=== PATIENT | female | born 1955 | race Hispanic/Latino ===

== ENCOUNTER 2020-12-02 17:15 | Emergency (ER) | payer SELFPAY ==
[2020-12-02 17:26] VITALS: BP 140/79; PULSE 76; RESP 18; TEMP 36.9; O2SAT 98
--- NOTE | 2020-12-02 17:47 | ED.URI ---
HPI - URI/Sore Throat General Chief Complaint: Upper Respiratory Infection Stated Complaint: runny eyes/sore throat/ear pain Time Seen by Provider: 12/02/20 17:47 Source: patient Mode of arrival: ambulatory Limitations: no limitations History of Present Illness HPI Narrative: Zahida Devries is a 65 yo female with PMH T2DM who [facility] with complaints of ear and sinus pain, sore throat, dry cough, red eyes x1 week. She does not speak Slovak-here as a plant operations coordinator Related Data Allergies Allergy/AdvReac Type Severity Reaction Status Date / Time No Known Allergies Allergy Verified 12/02/20 17:48 Review of Systems Review of Systems: Narrative: CONSTITUTIONAL: Denies fever, chills, sweats. EYES: Denies visual changes, redness, discharge. ENT: Denies rhinorrhea, congestion, has sore throat, has otalgia. Red eyes CARDIOVASCULAR: Denies chest pain, palpitations, edema. RESPIRATORY: Denies dyspnea, wheezing, dry cough GASTROINTESTINAL: Denies abdominal pain, nausea, vomiting, diarrhea. GENITOURINARY: Denies dysuria, hematuria, abnormal discharge SKIN: Denies rash or itching. NEUROLOGIC: Denies numbness, or focal weakness. PSYCHIATRIC: Denies anxiety or depression. [facility] Past Medical History Medical History Type 2 diabetes mellitus Social History Social History (Updated 12/02/20 @ 17:50 by Irma Choudhury CNP) Smoking status: Never smoker Alcohol intake: current Gender identity (if verbalized by the patient): Female Comments At time of signature, I agree with nursing past medical, surgical, social and family history. There is no relevant family history pertinent to the presenting complaint. Exam Narrative: Exam Narrative: GENERAL: This is a well-nourished, well-developed patient, in mild distress. HEAD: normocephalic, atraumatic. EYES: PERRL. Sclera clear/injected bilaterally vision is grossly intact. EARS: External ears normal, auditory canals with fluid behind bilateral TMs. TMs without perforation. Hearing grossly intact. NOSE: External nose normal without nasal discharge, nares without redness, some rhinorrhea. THROAT: Mucous membranes moist, posterior pharynx erythema NECK: Neck supple, non-tender CARDIOVASCULAR: Regular rate and rhythm without murmurs, gallops, or rubs. RESPIRATORY: Clear to auscultation. Breath sounds equal bilaterally. No wheezes, rales, or rhonchi. GASTROINTESTINAL: Abdomen soft, SKIN: warm, intact with no suspicious lesions or rash, good texture and turgor. NEURO: awake, alert, and oriented to person, place and time. There were no obvious focal neurologic abnormalities. Steady gait EXTREMITIES: Normal range of motion. BACK: Nontender without deformity Course Course Emergency Course: [facility] complaining of sinus pain ear pain dry cough injected eyes x1 week Strep test was negative Started on naphcon, zithromax, prednisone, delsym-starting due to length of symptoms and difficulty with patient getting into see any medical care Follow-up with PCP Vital Signs Vital signs: Vital Signs Temperature 98.4 F 12/02/20 17:26 Pulse Rate 76 12/02/20 17:26 Respiratory Rate 18 12/02/20 17:26 Blood Pressure 140/79 12/02/20 17:26 Pulse Oximetry 98 12/02/20 17:26 Temperature 98.4 F 12/02/20 17:26 Pulse Rate 76 12/02/20 17:26 Respiratory Rate 18 12/02/20 17:26 Blood Pressure 140/79 12/02/20 17:26 Pulse Oximetry 98 12/02/20 17:26 MDM - URI/Sore Throat Differential Diagnosis Differential diagnosis: Likely upper respiratory infection, sinusitis, viral infection, bronchitis, pharyngitis and other Lab Data Labs: Strep Screen Presumptive Negative *(Reference Range: Negative)* Critical Care Time Critical Care Time Critical Care Time: No Discharge Plan Discharge Clinical Impression: Bronchitis Patient Dis
== END 2020-12-02 18:13 | disposition home or self-care (01) ==
PROVIDERS: Emergency Provider Nurse Practitioner
DX: J40 Bronchitis, not specified as acute or chronic (principal); E11.9 Type 2 diabetes mellitus without complications
CPT/HCPCS: 87081; 87880; 99203; G0463

== ENCOUNTER 2021-12-17 10:44 | Emergency (ER) | payer MEDICAID, SELFPAY ==
[2021-12-17 10:48] VITALS: BP 170/86; PULSE 136; RESP 18; TEMP 36.2; O2SAT 100
--- NOTE | 2021-12-17 12:05 | PC.NURSE ---
Awaiting ERP evaluation.
--- NOTE | 2021-12-17 12:31 | ED.GENADULT ---
HPI - General Adult General Chief complaint: Eye Problems Stated complaint: poked eye with stick right eye Time Seen by Provider: 12/17/21 12:25 History of Present Illness HPI narrative: 56-year-old female presenting to the emergency department for evaluation of a traumatic injury to her right lateral eye. Patient was poked in the eye with a branch. Patient denies any change in vision of the eye. Patient does report some lateral eye pain. Patient's visual avalos are intact and had no change in her visual acuity. Injury happened just prior to arrival. Patient family acted as colloid mill operator. Official colloid mill operator was declined. Related Data Allergies Allergy/AdvReac Type Severity Reaction Status Date / Time No Known Allergies Allergy Unverified 10/03/17 10:37 Review of Systems Review of Systems: CONSTITUTIONAL: Denies fever, chills, or sweats. EYES: See HPI ENT: Denies rhinorrhea, congestion, sore throat, or otalgia. CARDIOVASCULAR: Denies chest pain, palpitations, or edema. RESPIRATORY: Denies cough or dyspnea. GASTROINTESTINAL: Denies abdominal pain, nausea, vomiting, or diarrhea. GENITOURINARY: Denies dysuria or hematuria. SKIN: Denies rash or itching. MUSCULOSKELETAL: Denies back pain, joint pain, or myalgia. NEUROLOGIC: Denies headache, numbness, or weakness. Exam Narrative: APPEARANCE: Well appearing, no pain, no distress, well-nourished. HEAD: normocephalic, atraumatic. EYES: PERRLA/EOMI, conjunctivae clear. Subconjunctival hemorrhage on lateral right eye. Some fluorescein uptake. No evidence of globe rupture. No flowing fluorescein from abrasion. Normal fundus exam. NOSE: Normal no drainage THROAT: Pharynx clear, no exudate. NECK: Supple. No adenopathy, no masses. RESPIRATORY: Airway patent, respirations nonlabored. Clear to auscultation bilaterally, no rales, rhonchi, wheezing. CARDIOVASCULAR: Regular rate and rhythm without murmurs rubs or gallops. ABDOMINAL: Soft, nontender, nondistended, normal bowel sounds MUSCULOSKELETAL: Moves all extremities. Strength/ROM intact, No edema, No calf tenderness. SKIN: Warm, dry. Normal Color Course Course Emergency Course: Patient was treated with antibiotic. Patient was scheduled for follow-up with ophthalmology. All questions concerns were addressed. Vital Signs Vital signs: Vital Signs Temperature 97.1 F L 12/17/21 10:48 Pulse Rate 136 H 12/17/21 10:48 Respiratory Rate 18 12/17/21 10:48 Blood Pressure 170/86 H 12/17/21 10:48 Pulse Oximetry 100 12/17/21 10:48 Oxygen Delivery Room Air 12/17/21 10:48 Temperature 97.1 F L 12/17/21 10:48 Pulse Rate 77 12/17/21 14:10 Respiratory Rate 16 12/17/21 14:10 Blood Pressure 142/88 H 12/17/21 14:10 Pulse Oximetry 98 12/17/21 14:10 Oxygen Delivery Room Air 12/17/21 10:48 Medical Decision Making Vital Signs Vital Signs: Vital Signs Temperature 97.1 F L 12/17/21 10:48 Pulse Rate 136 H 12/17/21 10:48 Respiratory Rate 18 12/17/21 10:48 Blood Pressure 170/86 H 12/17/21 10:48 Pulse Oximetry 100 12/17/21 10:48 Oxygen Delivery Room Air 12/17/21 10:48 Temperature 97.1 F L 12/17/21 10:48 Pulse Rate 77 12/17/21 14:10 Respiratory Rate 16 12/17/21 14:10 Blood Pressure 142/88 H 12/17/21 14:10 Pulse Oximetry 98 12/17/21 14:10 Oxygen Delivery Room Air 12/17/21 10:48 Discharge Plan Discharge Clinical Impression: Subconjunctival hemorrhage, Abrasion of sclera Patient Disposition: Home, Self-Care Condition: Stable Instructions: Antibiotic Form Additional Instructions: Antibiotic ointment as directed. Have close follow-up with your auth specialist. If you have any worsening symptoms then please call or return to the emergency department. Prescriptions: New erythromycin 5 mg/gram (0.5 %) ointment 1 applic RIGHT EYE BID Qty: 3.5 0RF Follow-up/Referrals: Jacob,TOYA Krishna [Primary Care Provider] -
[2021-12-17] MEDS: FLUORESCEIN SOD 1 MG/STRIP EACH EYE (13:38)
[2021-12-17] MEDS: ERYTHROMYCIN OPHTH OINTMENT 1 GM TUBE 1 APPLIC RIGHT EYE (14:06)
[2021-12-17 14:10] VITALS: BP 142/88; PULSE 77; RESP 16; O2SAT 98
== END 2021-12-17 14:11 | disposition home or self-care (01) ==
PROVIDERS: Emergency Provider Emergency Medicine; PCP Physician Assistant
DX: H11.31 Conjunctival hemorrhage, right eye (principal); S05.8X1A Other injuries of right eye and orbit, initial encounter; W22.8XXA Striking against or struck by other objects, initial encounter
CPT/HCPCS: 99283; A9270

== ENCOUNTER 2022-03-06 09:45 | Outpatient (CLI) | payer MEDICAID, SELFPAY ==
--- NOTE | 2022-03-06 11:36 | ECG_ITS ---
Measurements Intervals [place] Rate: 62 P: 50 ME: 146 QRS: 30 QRSD: 89 T: 61 QT: 411 QTc: 418 Interpretive Statements SINUS RHYTHM VENTRICULAR PREMATURE COMPLEX VOLTAGE CRITERIA FOR LVH BASELINE ARTIFACT- I, II, III, AVR, AVL, AVF BORDERLINE ECG NO PREVIOUS ECG AVAILABLE FOR COMPARISON Electronically Signed On 03-06-2022 12:42:36 CDT by Alejo Guevara D.O.
[2022-03-06 13:08] LABS: Anion Gap 15 mmol/L (8-16); Blood Urea Nitrogen 13 mg/dL (7-17); Calcium 9.6 mg/dL (8.4-10.2); Carbon Dioxide 22 mmol/L (22-30); Chloride 102 mmol/L (98-107); Estimated Glomerular Filt Rate > 60; Glucose 181 mg/dL (65-110); Sodium 139 mmol/L (137-145)
== END 2022-03-06 09:46 | disposition home or self-care (01) ==
LOC: ANHSURGERY 09:53
PROVIDERS: Anesthesiology; PCP Physician Assistant; Visit Provider Orthopaedic Surgery
DX: E11.9 Type 2 diabetes mellitus without complications (principal); Z01.818 Encounter for other preprocedural examination; R94.31 Abnormal electrocardiogram [ECG] [EKG]
CPT/HCPCS: 36415; 80048; 93005

== ENCOUNTER 2022-03-08 01:03 | Day surgery (SDC) | payer MEDICAID, SELFPAY ==
--- NOTE | 2022-03-06 10:04 | PC.NURSE ---
PRE-OP INSTRUCTIONS, PLEASE READ CAREFULLY Report to the Outpatient Waiting Room, entrance under the green pavilion located off [facility], at time _1130_ on date _03/08/22_. OR Time: _1:30 PM_. Time changes happen often and if your time is changed the preop area will call you the afternoon before. - You and your visitor will be asked to self-screen and do not enter if you have any COVID symptoms. - Only one visitor and NO children visitors are allowed at this time. - The patient visitor is requested to leave or wait in car when not with patient due to restrictions. - A mask is required within the hospital. Patients may have clear liquids (water, carbonated beverages, clear teas, apple juice) until 3 hours prior to surgery (1030 AM) with a maximum of 20 ounces. - No food from midnight until time of surgery Take the following medications with a SIP of water the morning of surgery: NONE____ Medications to discontinue per physician __N/A___, Date to take last dose Please no make-up, nail filipino, hairspray, perfume, deodorant, or body powder the day of surgery. No jewelry (including any body piercings) or valuables the day of surgery, leave them at home. Please take a shower or bath the night before, or the morning of, surgery with an antibacterial soap. Wear comfortable, loose fitting clothing. - Jewelry must be removed prior to entering the operating room. Rings and piercings that are not removed may be cut off. - The hospital will not accept responsibility for valuables. - Please leave all valuables, including medications, at home the day of surgery. If you are going home after surgery, a licensed marine engine driver must drive you home. - NO public transportation without another adult. - We recommend that an adult stay with you for 24 hours following discharge. - We also recommend that you do not drive, make important decision, drink alcoholic beverages, or take any drugs that were not prescribed by your health care provider for at least 24 hours after your discharge time. Follow any additional instructions given to you from your surgeon. If you or anyone in your household have experienced Covid symptoms in the past week, please notify your surgeon or the nurse liaison at the phone number below for possible testing. Instructions given to _PT & DAUGHTER (FARA) _and asked if any additional questions and then verbalized understanding. Patient advised to call surgeon office or pre surgery nurse liaison [phone] if any additional questions.
[2022-03-06 10:23] VITALS: BMI 23.9
[2022-03-08] VITALS (9 sets, daily range): BP systolic 134–205; BP diastolic 88–104; PULSE 60–83; RESP 10–20; TEMP 36.6–36.7; O2SAT 98–100
--- NOTE | ~2022-03-08 | XR_ITS ---
EXAMINATION: XR surgery orthopedic DATE: 03/08/2022 15:41 INDICATION: Distal right fibula fracture. TECHNIQUE: 3 intraoperative spot fluoroscopic views of right ankle were obtained. I was not present. Fluoroscopy exposure time was 574 seconds. COMPARISON: None. FINDINGS: There is an oblique fracture of distal fibula status post open reduction internal fixation with retrograde intramedullary goldie and multiple screws. IMPRESSION: 1. Oblique fracture of distal fibula status post open reduction internal fixation. Reviewed, dictated and finalized at location A. IMPRESSION: 1. Oblique fracture of distal fibula status post open reduction internal fixati on.
--- NOTE | 2022-03-08 07:14 | WPDHPUPDATE1 ---
History and Physical Update Update Date/Time: 03/08/22 07:14 History and Physical has been reviewed, including an updated exam of the patient. There are NO changes in the patient's condition. Risks, benefits, and alternatives have been discussed and questions answered. Patient agrees to proceed with procedure.
--- NOTE | 2022-03-08 07:45 | P.PNAN_ITS ---
Anes - Initial Pre Proc Eval Procedure: Operation Date: 03/08/22 13:30 Proposed Procedures p Open Reduction Internal Fixation Right Ankle Fracture - Jaxon London MD Date/Time: 03/08/22 07:45 Surgeon: Jaxon London MD Pre Op Diagnosis: Rt Ankle Fx Patient Data Age: 57 Gender: F Height: 1.63 m Weight: 63.3 kg Allergies Allergy/AdvReac Type Severity Reaction Status Date / Time No Known Allergies Allergy Verified 03/06/22 10:20 Home Medications Medication Instructions Recorded Confirmed Type atorvastatin 10 mg tablet 10 mg DAILY 03/06/22 03/06/22 History glipizide 10 mg tablet 10 mg BID 03/06/22 03/06/22 History Patient hx anesthesia problems: none Family hx anesthesia problems: none Results Review: All pre-operative results and documents have been reviewed as part of the pre- operative evaluation. [facility] Past Medical History Medical History (Updated 03/08/22 @ 07:46 by Homar Castro DO) Closed right ankle fracture Diabetes type 2, controlled Hyperlipidemia Social History Social History Smoking status: Never smoker Second hand tobacco smoke exposure: No Alcohol intake: never Substance use: never Substance use type: does not use Living arrangements: with family Additional living arrangements comments: PT LIVES WITH SURESH MICHELLE [phone] Gender identity (if verbalized by the patient): Female Spiritual care concerns: No Anes - Eval Final PreProcedure Day of Procedure 03/08/22 07:45 Patient weight: normal Heart: regular rate and rhythm Lungs: clear to auscultation Airway: Mallampati scale class II Neurological: alert and oriented Last oral intake: >/= 8 hours ASA classification: III Emergent: no Anesthetic plan: proceed Anesthesia type and monitoring: general LMA and standard monitoring Results Review: All pre-operative results and documents have been reviewed as part of the pre- operative evaluation. Informed Consent: The patient's anesthetic plan and its attendant risks and benefits were discussed with the patient/family/POA. Questions were solicited and answers provided to the satisfaction of the patient/family/POA.
[2022-03-08 12:43] LABS: Glucose Point of Care 179 mg/dl (65-105)
[2022-03-08] MEDS: ACETAMINOPHEN 500 MG TABLET 1000 MG PO (13:30)
[2022-03-08] MEDS: CELECOXIB 200 MG CAPSULE PO (13:30)
[2022-03-08] MEDS: LACTATED RINGERS 1,000 ML 30 ML IV CONT ×2 (13:30→16:00)
[2022-03-08] MEDS: ceFAZolin 2 GM/D5W 50 ML 2 GM/50 ML BAG IVPB (14:30)
[2022-03-08] MEDS: BUPIVACAINE HCL 0.5% PF 30 ML VIAL INFILTRATE (15:02)
--- NOTE | 2022-03-08 16:12 | W.PM.PROC2 ---
Procedure Note - Detailed Date of Procedure 03/08/22 Pre-op Diagnosis RIGHT LATERAL MALLEOLUS FRACTURE Post-op Diagnosis Same Procedure Performed ORIF RIGHT LATERAL MALLEOLUS FRACTURE Surgeon Jaxon London MD Anesthesia General Description of Procedure THE PATIENT WAS TAKEN TO THE OR. THE RIGHT LEG WAS PREPPED AND DRAPED IN THE NORMAL FASHION. AN INCISION WAS MADE AT THE DISTAL FIBULA TIP. A GUIDE PIN WAS INSERTED USING FLUOROSCOPY AND BRIDGING THE FRACTURE FRAGMENTS. A REAMER WAS USED TO REAM THE PROXIMAL AND DISTAL FRACTURE FRAGMENTS. A 3.0 X 130 MM FIBULOCK [place] BY ARTHREX WAS INSERTED AND LOCKED BOTH PROXIMALLY AND DISTALLY WITH 3 SCREWS DISTALLY. C ARM WAS USED THE IMAGE THE ANKLE AND IT WAS FOUND THAT HARDWARE WAS IN GOOD POSITION AND THE SYNDESMOSIS AND FIBULA FRACTURE WAS REDUCED WELL. C ARM WAS USED TO CONFIRM THE POSITION OF ALL SCREWS. NEXT THE WOUNDS WERE WASHED AND 4-0 NYLON WERE USED TO APPROXIMATED THE WOUNDS. WOUNDS WERE WASHED THEN PLACED IN A STERILE DRESSING, THEN A PLASTER SPLINT WAS PLACED.. PATIENT WAS EXTUBATED AND SENT TO RECOVERY ROOM IN STABLE CONDITION. Estimated Blood Loss 10 Complications No immediate complications Condition Stable Disposition PACU
[2022-03-08 16:32] LABS: Glucose Point of Care 157 mg/dl (65-105)
[2022-03-08] MEDS: fentaNYL CITRATE INJ (*CRX) 100 MCG/2 ML VIAL 25 MCG IV PUSH ×2 (16:35→16:37)
[2022-03-08] MEDS: hydrALAZINE HCL 20 MG/ML VIAL 10 MG IV PUSH (16:43)
[2022-03-08] MEDS: oxyCODONE HCL (*CRX) 5 MG TAB IR PO (17:29)
== END 2022-03-08 18:20 | disposition home or self-care (01) ==
PROVIDERS: PCP Physician Assistant; Visit Provider Orthopaedic Surgery
PROC: (CPT 27792; principal; 2022-03-08 13:30)
DX: S82.61XA Displaced fracture of lateral malleolus of right fibula, initial encounter for closed fracture (principal); W19.XXXA Unspecified fall, initial encounter; E11.9 Type 2 diabetes mellitus without complications; E78.5 Hyperlipidemia, unspecified; Z79.84 Long term (current) use of oral hypoglycemic drugs
CPT/HCPCS: 27792; 82948; 99199; A9270; C1713; C1769; J0360; J0690; J2250; J2405; J2704; J3010; J7120

== ENCOUNTER 2022-04-26 14:47 | Emergency (ER) | payer MEDICAID, SELFPAY ==
[2022-04-26 14:58] VITALS: BP 147/69; PULSE 98; RESP 16; TEMP 36.8; O2SAT 99
--- NOTE | 2022-04-26 16:17 | ED.SKABFB ---
HPI - Skin/Abscess/Foreign Bdy General Chief complaint: Skin/Abscess/Foreign Body Stated complaint: cyst Time Seen by Provider: 04/26/22 16:13 Source: patient Mode of arrival: ambulatory Limitations: no limitations History of Present Illness HPI narrative: Patient presents today with a cyst to her left inner thigh that has been present for 7 days and has been worsening since onset. She has not tried any [id number] treatment prior to arrival. States it is very painful. Related Data Home Medications Medication Instructions Recorded Confirmed atorvastatin 10 mg tablet 10 mg DAILY 03/06/22 03/23/22 glipizide 10 mg tablet 10 mg BID 03/06/22 03/23/22 Allergies Allergy/AdvReac Type Severity Reaction Status Date / Time No Known Allergies Allergy Verified 04/26/22 15:00 Review of Systems Review of Systems: CONSTITUTIONAL: Denies body aches, fever, chills, or sweats. EYES: Denies visual changes, redness, or discharge. ENT: Denies rhinorrhea, congestion, sore throat, or otalgia. CARDIOVASCULAR: Denies chest pain, palpitations, or edema. RESPIRATORY: Denies cough or dyspnea. GASTROINTESTINAL: Denies abdominal pain, nausea, vomiting, or diarrhea. GENITOURINARY: Denies dysuria or hematuria. SKIN: + Abscess to left inner thigh MUSCULOSKELETAL: Denies back pain, joint pain, or myalgia. NEUROLOGIC: Denies headache, numbness, tingling, or weakness. PSYCH: Denies depression or anxiety. [facility] Past Medical History Medical History Closed right ankle fracture Diabetes type 2, controlled Hyperlipidemia Social History Social History Smoking status: Never smoker Second hand tobacco smoke exposure: No Alcohol intake: never Substance use: never Substance use type: does not use Additional living arrangements comments: PT LIVES WITH SURESH MICHELLE [phone] Gender identity (if verbalized by the patient): Female Spiritual care concerns: No Comments At time of signature, I have reviewed and agree with nursing past medical, surgical, social and family history unless otherwise noted. Please see nursing chart for further information. There is no relevant family history pertinent to the presenting complaint Exam Narrative: GENERAL: Well-appearing, well-nourished, and in no acute distress. HEAD: Normocephalic, atraumatic. EYES: EOMI. No redness or drainage. Conjunctivae normal. ENT: Mucous membranes pink and moist. NECK: Normal AROM. CHEST: No respiratory distress. EXTREMITIES: Normal range of motion. No edema. SKIN: Warm, dry, no rash. Capillary refill normal. Normal skin turgor. 1.5 cm fluctuant lesion with purulent center to the left inner thigh with surrounding erythema. It is tender to palpation. NEURO: No focal deficits. Alert and oriented x3. Gait steady. PSYCH: Normal affect. No signs of depression or anxiety. Course Course Level of Care: Express Care Visit Vital Signs Vital signs: Vital Signs Temperature 98.3 F 04/26/22 14:58 Pulse Rate 98 04/26/22 14:58 Respiratory Rate 16 04/26/22 14:58 Blood Pressure 147/69 H 04/26/22 14:58 Pulse Oximetry 99 04/26/22 14:58 Oxygen Delivery Room Air 04/26/22 14:58 Temperature 98.3 F 04/26/22 14:58 Pulse Rate 98 04/26/22 14:58 Respiratory Rate 16 04/26/22 14:58 Blood Pressure 147/69 H 04/26/22 14:58 Pulse Oximetry 99 04/26/22 14:58 Oxygen Delivery Room Air 04/26/22 14:58 Reviewed. Pt has been instructed to follow up with her PCP regarding her elevated blood pressure today. Procedures Abscess I/D lower extremity: Date of Incision: 04/26/22 Time of Incision: 16:30 Side (if applicable): left Sedation/analgesia: none Local Anesthetic: lidocaine 1% Amount of anesthesia used (mL): 2 Technique: incised with #11 blade Amount of fluid e
[2022-04-26] MEDS: LIDOCAINE HCL 1% LOCAL INJ 2 ML AMPUL INFILTRATE (17:06)
== END 2022-04-26 16:40 | disposition home or self-care (01) ==
PROVIDERS: Emergency Provider Nurse Practitioner; PCP Physician Assistant
DX: L02.416 Cutaneous abscess of left lower limb (principal); E11.9 Type 2 diabetes mellitus without complications; E78.5 Hyperlipidemia, unspecified
CPT/HCPCS: 10060; 99213; G0463

== ENCOUNTER 2022-11-28 14:15 | Emergency (ER) | payer OTHER, SELFPAY ==
[2022-11-28 14:34] VITALS: BP 134/75; PULSE 80; RESP 16; TEMP 36.9; O2SAT 97
--- NOTE | 2022-11-28 14:42 | ED.GENADULT ---
HPI - General Adult General Chief complaint: Upper Respiratory Infection Stated complaint: Cough, pain on nose & ears Time Seen by Provider: 11/28/22 14:42 Source: patient, RN notes reviewed, old records reviewed and factory expert (Sami) Mode of arrival: ambulatory Limitations: no limitations History of Present Illness HPI narrative: 57-year-old female presents to the [facility] with complaints of cough, runny nose and ear pain for 3 days. Has not taken anything for her symptoms. Denies fevers, chest pain, abdominal pain. Use college service officer, patient speaks no Kyrgyz Onset (ago): day(s) (3) Related Data Home Medications Medication Instructions Recorded Confirmed canagliflozin 300 mg tablet mg 11/28/22 (Invokana) metformin 1,000 mg tablet mg 11/28/22 11/28/22 Allergies Allergy/AdvReac Type Severity Reaction Status Date / Time No Known Allergies Allergy Verified 11/28/22 14:44 Review of Systems Review of Systems: All systems reviewed & are unremarkable except as noted in HPI and below Constitutional: Constitutional: Reports no additional constitutional complaints Eyes: Eyes: Reports no additional eye complaints ENT: Reports as per HPI, Reports otalgia and Reports nasal discharge Cardiovascular: Cardiovascular: Reports no additional cardiovascular complaints, Denies chest pain and Denies dyspnea Respiratory: Respiratory: Reports as per HPI, Denies chest congestion, Reports cough and Denies dyspnea Gastrointestinal: Gastrointestinal: Reports no additional gastrointestinal complaints, Denies abdominal pain, Denies nausea and Denies vomiting Musculoskeletal: Musculoskeletal: Reports no additional musculoskeletal complaints Integumentary/Breasts: Skin/Breast: Reports system reviewed and no additional complaints, except as docu Neurologic: Reports system reviewed and no additional complaints, except as documented Psychiatric: Psychiatric: Reports no additional psychiatric complaints Allergic/Immunologic: Allergic/Immunologic: Reports no additional allergic/immunologic complaints [facility] Past Medical History Medical History Type 2 diabetes mellitus Social History Social History Smoking status: Never smoker Alcohol intake: current Gender identity (if verbalized by the patient): Female Comments At the time of my signature, I reviewed and agree with the nursing past medical, surgical, social, and family history. There is no relevant family history pertinent to the patient complaint. Exam Const: General: cooperative, healthy appearing, comfortable, no acute distress, well developed, alert and well nourished Nutritional Appearance: well nourished Orientation/consciousness: patient oriented x3 Limitations: no limitations HENMT: Head: normal to inspection Ears: hearing grossly normal bilaterally, external ears normal, TM's normal bilaterally and EAC's normal Face/Nose/Sinus: Normal external nose present, Normal nares present, Normal nasal mucous membranes and turbinates present and normal facial exam Face and sinus: normal facial exam Mouth: Yes Normal oral and palatal mucosa present, Yes lip normal and Yes moist mucous membranes Throat: posterior oropharynx normal, uvula midline and postnasal drainage (Large amount) Eyes: General: appearance normal, both eyes and all related structures Alignment and Position: alignment normal Periorbital: periorbital findings normal Pupils: Equal, round and reactive pupils present EOM: EOMs intact bilaterally Neck: Neck: normal visual inspection, full ROM, no lymphadenopathy and no meningeal signs Chest: Chest palpation & inspection: normal inspection of the chest Resp: Effort & Inspection: normal respiratory effort and able to speak in complete sentences Auscultation: clear to auscultation bilaterally, no crackles, no rales, no rhonchi and no whee
== END 2022-11-28 14:58 | disposition home or self-care (01) ==
PROVIDERS: Emergency Provider Nurse Practitioner; PCP Physician Assistant
DX: J06.9 Acute upper respiratory infection, unspecified (principal); E11.9 Type 2 diabetes mellitus without complications
CPT/HCPCS: 99213; G0463

== ENCOUNTER 2025-05-25 18:21 | Emergency (ER) | payer OTHER, SELFPAY ==
--- NOTE | 2025-05-25 18:24 | ED.SKABFB ---
HPI - Skin/Abscess/Foreign Bdy General Chief complaint: Allergic Reaction Stated complaint: Skin Time Seen by Provider: 05/25/25 18:23 Source: patient Mode of arrival: ambulatory Limitations: no limitations History of Present Illness HPI narrative: Zahida is a 60-year-old female patient presenting to the clinic today with complaints of itchy red rash all over her body that just started a few hours ago. Patient denies any new medications, soaps, shampoos, lotions, or detergents. No environmental changes. No new medications. Is concerned that may be she had ingested a spoiled protein shake. Denies any chest pain, shortness of breath, drooling, tongue swelling, or difficulty swallowing. States she is agitated due to the itching. Not taken any medications to treat her symptoms. History of diabetes and hypertension. Related Data Home Medications ?Medication ?Instructions ?Recorded ?Confirmed ?Last Taken ?Type glipizide 10 mg tablet 10 mg BID 03/06/22 05/04/22 Unknown History Held on 05/25/25. Instructions: out of med metformin 1,000 mg tablet mg 11/28/22 11/28/22 Unknown History Held on 05/25/25. Instructions: out of med lisinopril 10 mg tablet mg 05/25/25 Unknown History Allergies Allergy/AdvReac Type Severity Reaction Status Date / Time No Known Allergies Allergy Verified 05/25/25 18:39 Review of Systems Review of Systems: Pertinent positives per HPI. Patient denies any fever, chills, headache, visual changes, dizziness, cough, runny nose, sore throat, shortness of breath, chest pain, palpitations, nausea, vomiting, diarrhea, constipation, abdominal pain, or any urinary issues. [facility] Past Medical History Medical History Diabetes type 2, controlled Hyperlipidemia Closed right ankle fracture Type 2 diabetes mellitus Social History Social History Smoking status: Never smoker Second hand tobacco smoke exposure: No Alcohol intake: never Substance use: never Substance use type: does not use Living arrangements: with family Additional living arrangements comments: PT LIVES WITH SON Apolonia MICHELLE [phone] Occupation/Education: unemployed Gender identity (if verbalized by the patient): Female Spiritual care concerns: No Comments At the time of my signature, I reviewed and agree with the nursing past medical, surgical, social, and family history. There is no relevant family history pertinent to the patient complaint. Exam Narrative: General: Well-developed, well nourished, in no apparent distress Head: Normocephalic, atraumatic. Cardio: Regular rate and rhythm, s1 and s2 normal, no murmur appreciated. Resp: Clear to auscultation bilaterally, no rhonchi, rales, wheezing or rubs. Integumentary: [place], warm, and dry, intact without lesion, red itchy nontender blanchable scattered non papular rash on face, arms, legs, chest, abdomen, groin, and back. Course Course Level of Care: Express Care Visit Vital Signs Vital signs: Vital Signs Temperature 36.6 C 05/25/25 18:31 Pulse Rate 87 05/25/25 18:31 Respiratory Rate 18 05/25/25 18:31 Blood Pressure 154/105 H 05/25/25 18:31 Pulse Oximetry 99 05/25/25 18:31 Oxygen Delivery Room Air 05/25/25 18:31 Temperature 36.6 C 05/25/25 18:31 Pulse Rate 87 05/25/25 18:31 Respiratory Rate 18 05/25/25 18:31 Blood Pressure 154/105 H 05/25/25 18:31 Pulse Oximetry 99 05/25/25 18:31 Oxygen Delivery Room Air 05/25/25 18:31 MDM MDM Narrative Medical decision making narrative: At the time of visit patient is resting comfortably on the exam table. Patient appears to be nontoxic. Complaints of itchy red rash all over her body that just started a few hours ago. Patient denies any new medications, soaps, shampoos, lotions, or detergents. No environmental changes. No new medications. Is concerned that may be she had ingested a spoiled protein shake. Denies any chest pain, shortness of breath, drooling, tongue swelling, or difficulty swallowing. States she is agitated due to the itching. Not taken any medications to treat her symptoms. History of diabetes and hypertension. On exam patient has red itchy nontender blanchable scattered non papular rash on face, arms, legs, chest, abdomen, groin, and back. Decadron 10 mg IM ordered. Medications: Decadron 10 mg IM given in the clinic today. After Decadron injection patient's itching and rash improved. Plan: I suspect patient has allergic dermatitis. Prescription for prednisone 10 day taper dose was sent to the pharmacy-start this tomorrow. Keep a tight control in your blood sugar. Supportive measures were discussed with the patient and they voiced understanding discharge instructions and agrees to treatment plan. Return precautions reviewed Differential Diagnosis Differential Diagnosis: Allergic contact dermatitis, dermatitis, cellulitis, scarlatina, viral exanthem, hives, allergic reaction Discharge Plan Discharge Clinical Impression: Allergic dermatitis Patient Disposition: Home Condition: Stable Instructions: Antibiotic Form, Dermatitis (ED) Additional Instructions: Decadron 10 mg IM given in the clinic today Take prednisone as directed-start this on May 26, 2025 Avoid hot showers Avoid scratching as this can cause a secondary infection May take benadryl 25-50mg every 6 hours as needed for itching. Follow up with your PCP in 3-5 days if symptoms persist or sooner if they worsen Moisturize her skin twice daily using and non scented lotion such as Lubriderm, Cetaphil, or Aquaphor lotion Go to the Emergency Room if symptoms worsen- fever, rash spreading with treatment , shortness of breath, tongue swelling, drooling, or chest pain Decadron 10 mg IM administrado en la cl?yaneli hoy. [place] prednisona seg?n las indicaciones; comience el tratamiento el 2 de diciembre 2024. Evite duchas calientes. Evite rascarse, ya que puede causar arlen infecci?n secundaria. Puede pablito Benadryl 25-50 mg cada 6 horas seg?n sea necesario para la picaz?n. Consulte con separza m?dico de cabecera en 3-5 d?as si los s?ntomas persisten o antes si empeoran. Hidrate la piel dos veces al d?a con arlen loci?n sin perfume abhishek Lubriderm, Cetaphil o Aquaphor. Acuda a urgencias si los s?ntomas empeoran: fiebre, sarpullido que se extiende con el tratamiento, dificultad para respirar, inflamaci?n de la lengua, babeo o dolor en el pecho. Patient Language: English Prescriptions: New prednisone 10 mg tablet 10 mg PO DAILY Qty: 30 0RF Rx Instructions: 60mg po daily on day 1, 40mg po daily on days 2-4, 30mg po daily on days 5-6, 20mg po daily on days 7-8, 10mg po daily on days 9-10 No Action metformin 1,000 mg tablet lisinopril 10 mg tablet glipizide 10 mg tablet 10 mg BID Follow-up/Referrals: Jacob,TOYA Krishna [Primary Care Provider, Family Practice] Time of Disposition: 18:41 Quality NIHSS Nursing Documentation ED NIHSS nursing documentation: reviewed/agree
[2025-05-25 18:31] VITALS: BP 154/105; PULSE 87; RESP 18; TEMP 36.6; O2SAT 99
[2025-05-25] MEDS: dexAMETHasone SOD PHOS INJ 10 MG/ML 1 ML VIAL IM (18:48)
== END 2025-05-25 19:22 | disposition home or self-care (01) ==
PROVIDERS: Emergency Provider Nurse Practitioner Family; PCP Physician Assistant
DX: L23.9 Allergic contact dermatitis, unspecified cause (principal); E11.9 Type 2 diabetes mellitus without complications; Z79.84 Long term (current) use of oral hypoglycemic drugs; I10 Essential (primary) hypertension; E78.5 Hyperlipidemia, unspecified
CPT/HCPCS: 96372; 99213; G0463; J1100